=== PATIENT | female | born 1945 | race Hispanic/Latino ===

== ENCOUNTER 2018-03-08 10:44 | Emergency (ER) | payer BC, MEDICARE ==
[2018-03-08] MEDS ORDERED: ONDANSETRON HCL 4 MG/2 ML VIAL ONE (11:09)
[2018-03-08] MEDS ORDERED: MECLIZINE HCL 25 MG TABLET ONE (11:09)
[2018-03-08] MEDS ORDERED: SODIUM CHLORIDE 0.9% 500ML 500 ML IV ONE (11:11)
[2018-03-08 11:13] LABS: CREATININE 0.6 mg/dL (0.5-1.5); POTASSIUM 3.6 mmol/L (3.5-5.1)
[2018-03-08 11:16] LABS: BASOPHILS % (AUTO) 0.5 % (0.0-5.0); EOSINOPHILS % (AUTO) 0.6 % (0.0-8.0); HEMATOCRIT 43.6 % (36-48); LYMPHOCYTES % (AUTO) 17.3 % (21.0-51.0); MEAN CORPUSCULAR HEMOGLOBIN 28.7 pg (27.0-33.0); MEAN CORPUSCULAR HGB CONC 33.5 g/dL (32.0-36.0); MEAN CORPUSCULAR VOLUME 85.8 fL (79-99); MONOCYTES % (AUTO) 3.9 % (3.0-13.0); NEUTROPHILS % (AUTO) 77.7 % (40.0-77.0); PLATELET COUNT (AUTO) 203 K/uL (130-400); RED BLOOD CELL COUNT(AUTO) 5.08 MIL/uL (4.00-5.50); RED CELL DISTRIBUTION WIDTH 14.5 % (11.0-15.5); WHITE BLOOD COUNT (AUTO) 8.1 K/uL (4.8-10.8)
[2018-03-08 11:18] LABS: ALBUMIN 3.7 g/dL (3.5-5.0); BILIRUBIN,TOTAL 0.6 mg/dL (0.2-1.0)
[2018-03-08] MEDS ORDERED: NICARDIPINE IN NACL, ISO-OSM 200 ML IV ONE (11:45)
== END 2018-03-08 13:21 | disposition short-term general hospital (02) ==
LOC: EDH 10:44
DX: I62.9 Nontraumatic intracranial hemorrhage, unspecified (principal); I61.9 Nontraumatic intracerebral hemorrhage, unspecified; I10 Essential (primary) hypertension; E78.00 Pure hypercholesterolemia, unspecified
CPT/HCPCS: 36415; 70450; 80053; 83880; 84484; 85025; 93005; 96361; 96374; 96375; 99291; J2405; J3490; J7040